=== PATIENT | male | born 1990 | race Two or more races ===

== ENCOUNTER 2019-01-12 18:31 | Emergency (ER) | payer SELFPAY ==
--- NOTE | 2019-01-12 19:27 | ER Document Report ---
ED Medical Screen (RME) - General Chief Complaint: Laceration Stated Complaint: HEAD LACERATION Time Seen by Provider: 01/12/19 19:24 Notes: Patient fell out of the back of the pickup truck that was not moving. He sustained a small cut to the upper mid forehead and a longer cut to the dorsal right hand. No other injuries. TRAVEL OUTSIDE OF THE [place] IN LAST 30 DAYS: No Physical Exam - Vital signs Vitals: Temp Pulse Resp BP Pulse Ox 98.1 F 79 20 155/73 H 100 01/12/19 18:35 01/12/19 18:35 01/12/19 18:35 01/12/19 18:35 01/12/19 18:35 Course - Vital Signs Vital signs: Temp Pulse Resp BP Pulse Ox 98.1 F 79 20 155/73 H 100 01/12/19 18:35 01/12/19 18:35 01/12/19 18:35 01/12/19 18:35 01/12/19 18:35
[2019-01-12] MEDS ORDERED: LIDOCAINE 1% INJ-PF (10 MG/ML) 30 ML SDV INJ ONE (21:40)
--- NOTE | 2019-01-12 22:18 | ER Document Report ---
ED Wound - General Chief Complaint: Laceration Stated Complaint: HEAD LACERATION Time Seen by Provider: 01/12/19 19:24 Notes: Patient is a 28-year-old male who presents to the emergency department with a chief complaint of laceration to his right dorsal hand and forehead. He states that he was on the back of his dad's pickup truck and fell. He scraped his hand on the tailgate and also bumped his head. He denies any loss of consciousness, vomiting, altered mental status, or any symptoms. He is up-to-date on his tetanus shot. Denies any past medical history. Does not take in any medications. TRAVEL OUTSIDE OF THE [place] IN LAST 30 DAYS: No - Related Data Allergies/Adverse Reactions: No Known Allergies Allergy (Verified 01/12/19 19:32) Past Medical History - Social History Smoking Status: Current Every Day Smoker Frequency of alcohol use: None Drug Abuse: None Family History: Reviewed & Not Pertinent Patient has suicidal ideation: No Patient has homicidal ideation: No Renal/ Medical History: Denies: Hx Peritoneal Dialysis Review of Systems - Review of Systems Notes: REVIEW OF SYSTEMS: CONSTITUTIONAL : Denies recent illness. Denies recent unintentional weight loss. Denies fever, chills, or sweats. EENT: Denies eye, ear, throat, or mouth pain, discharge, or symptoms. Denies nasal or sinus congestion. CARDIOVASCULAR: Denies chest pain. RESPIRATORY: Denies shortness of breath, cough, congestion, difficulty breathing, or wheezing. GASTROINTESTINAL: Denies nausea, vomiting, and diarrhea. Denies abdominal pain. Denies constipation. GENITOURINARY: Denies difficulty urinating, burning, blood in urine, urgency or frequency. MUSCULOSKELETAL: See HPI SKIN: See HPI HEMATOLOGIC : Denies easy bruising or bleeding. LYMPHATIC: Denies swollen, painful, enlarged glands. NEUROLOGICAL: Denies no numbness or tingling denies weakness. Denies headache. Denies altered mental status. Denies alteration in speech. PSYCHIATRIC: Denies stress, anxiety, alteration in sleep patterns, or depression. All other systems reviewed and negative. Physical Exam - Vital signs Vitals: Temp Pulse Resp BP Pulse Ox 98.1 F 79 20 155/73 H 100 01/12/19 18:35 01/12/19 18:35 01/12/19 18:35 01/12/19 18:35 01/12/19 18:35 - Notes Notes: PHYSICAL EXAMINATION: GENERAL: Appears well, healthy, well-nourished, no acute distress. HEAD: Normocephalic, atraumatic. EYES: PERRL, conjunctiva normal, all extraocular movements intact, sclera nonicteric ENT: Moist mucous membranes. NECK: Supple, no noticeable swelling, redness, rash. Normal range of motion. LUNGS: Equal breath sounds bilaterally and clear to auscultation. No wheezes rales or rhonchi. CARDIOVASCULAR: S1-S2, regular rate, regular rhythm. Radial pulses 2+, normal. ABDOMEN: Normoactive bowel sounds. Soft, nontender, no guarding, no rebound tenderness, and no masses palpated. EXTREMITIES: Normal strength and range of motion, no pitting or edema. No cyanosis. NEUROLOGICAL: Moves all extremities upon command. Strength 5/5 in all extremities. PSYCH: Normal mood, normal affect. SKIN: Warm, dry. Laceration noted to right dorsal hand about 5 cm in length. Laceration noted to mid forehead near hairline about 2 cm in length. Course - Re-evaluation Re-evalutation: There is no obvious hematoma to his head. There is a very small laceration to his forehead. A CT of the head is not indicated at this time due to the low impact of the fall. He is not on blood thinners. 4 stitches were placed to the dorsal aspect of the right hand. He tolerated the procedure well. I do not suspect any ligamentous injury nor bone injury. 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 He is able to move all digits well with no problem. 2 stitches were placed to his mid forehead near his hairline. He tolerated the procedure well. He will be started on Keflex due to him having a laceration to his hand. He will follow-up with the [facility] and have his stitches removed in 7 days. Verbal discharge instructions were given to the patient. They verbalized understanding. They are stable for discharge. - Vital Signs Vital signs: Temp Pulse Resp BP Pulse Ox 98.8 F 68 16 148/94 H 99 01/12/19 23:02 01/12/19 23:02 01/12/19 23:02 01/12/19 23:02 01/12/19 23:02 Procedures - Laceration/Wound Repair Right Dorsal Hand Wound length (cm): 4 Wound's Depth, Shape: Superficial Laceration pre-procedure: Sterile PPE donned, Shur-Clens applied Anesthetic type: 1% Lidocaine Wound explored: Clean, No foreign body removed Wound Debrided: Minimal Wound Repaired With: Sutures Suture Size/Type: 5:0, Nylon Number of Sutures: 4 Layer Closure?: No Post-procedure wound care: Sterile dressing applied Post-procedure NV exam normal: Yes Complications: No Mid forehead near hairline Wound length (cm): 2 Wound's Depth, Shape: Superficial Laceration pre-procedure: Sterile PPE donned, Sterile drapes applied, Shur-Clens applied Anesthetic type: 1% Lidocaine Wound explored: Clean Wound Repaired With: Sutures Suture Size/Type: 5:0, Nylon Layer Closure?: No Post-procedure wound care: Sterile dressing applied Post-procedure NV exam normal: Yes Complications: No Discharge - Discharge Clinical Impression: Laceration Fall Qualifiers: Encounter type: initial encounter Qualified Code(s): W19.XXXA - Unspecified fall, initial encounter Condition: Stable Disposition: HOME, SELF-CARE Instructions: Antibiotic Ointment Protection ([facility]), Laceration Care ([facility]), Prophylactic Antibiotic ([facility]), Soap Cleansing ([facility]) Additional Instructions: Please return to your primary doctor, the ED, or an urgent care in 7 days for suture removal. Return immediately if you develop spreading redness around the wound, pus from the wound, worsening pain, or a fever of >100.4. Keep the area clean and dry. Wash gently with soap and water twice daily and cover with antibiotic ointment. You have also been given antibiotics to prevent infection. Please take all as prescribed. Prescriptions: Cephalexin Monohydrate [Keflex 500 mg Capsule] 500 mg PO Q6H 5 Days capsule
[2019-01-12 23:04] VITALS: BP 148/94
== END 2019-01-12 23:15 | disposition home or self-care (01) ==
LOC: ER 18:31
PROC: 0HQFXZZ Repair Right Hand Skin, External Approach (ICD-10-PCS; principal; 2019-01-12)
PROC: 0HQ1XZZ Repair Face Skin, External Approach (ICD-10-PCS; 2019-01-12)
DX: S01.81XA Laceration without foreign body of other part of head, initial encounter (principal); S61.411A Laceration without foreign body of right hand, initial encounter; W17.89XA Other fall from one level to another, initial encounter; F17.200 Nicotine dependence, unspecified, uncomplicated
CPT/HCPCS: 99282; 12011; 12002; J3490